=== PATIENT | female | born 1985 | race Caucasian/White ===

== ENCOUNTER 2023-10-22 15:05 | Emergency (ER) | payer OTHER ==
[~2023-10-22] VITALS: Ht 175.3 cm; Wt 80.7 kg
[2023-10-22 15:13] VITALS: BP 96/79; PULSE 105; RESP 18; TEMP 97.5; O2SAT 98
[2023-10-22] MEDS: IBUPROFEN 600 MG TAB PO ONE (16:18)
[2023-10-22] MEDS ORDERED: ACET-8905 PO (18:00)
[2023-10-22] MEDS ORDERED: IBUP-2218 PO (18:00)
[2023-10-22 18:53] VITALS: BP 96/79; PULSE 105; RESP 18; TEMP 97.5; O2SAT 98
== END 2023-10-22 18:53 | disposition home or self-care (01) ==
LOC: MED 15:05
DX: S52.125A Nondisplaced fracture of head of left radius, initial encounter for closed fracture (principal); Z79.899 Other long term (current) drug therapy; W05.2XXA Fall from non-moving motorized mobility scooter, initial encounter; Y93.89 Activity, other specified; Y92.89 Other specified places as the place of occurrence of the external cause; Y99.8 Other external cause status
CPT/HCPCS: 29105; 73080; 73110; 73562; 99284; J7030